=== PATIENT | female | born 1940 | race Caucasian/White ===

== ENCOUNTER 2022-05-31 12:40 | Inpatient (IN) | payer MEDICARE, MEDICAID ==
[~2022-05-31] VITALS: Ht 165.1 cm; Wt 88.5 kg
--- NOTE | 2022-05-31 12:45 | NUR ---
RECEVED PT 82 YRS FEMALE CAME FROM HOME FOR UNABLE TO AMBLATE AND GENRALIZED WEEKNESS AWAKE PEROD OF COFUSTION
--- NOTE | 2022-05-31 12:48 | NUR ---
MOVE SHEET SUBMITTED.
[2022-05-31] MEDS ORDERED: ACETAMINOPHEN 325 MG TABLET PO ONE (13:00)
--- NOTE | 2022-05-31 13:00 | NUR ---
UNABLE TO STARE IV LINE AND PT REFUSED TO INSERTED
[2022-05-31] MEDS ORDERED: ALPR0.5T8 PO (13:47)
[2022-05-31] MEDS ORDERED: ZOLP5TAB8 PO (13:47)
[2022-05-31] MEDS ORDERED: MEMA7CAP2 PO (13:47)
[2022-05-31] MEDS ORDERED: DICL75TA5 PO (13:47)
[2022-05-31] MEDS ORDERED: AMLO2.5T4 PO (13:47)
--- NOTE | 2022-05-31 14:00 | NUR ---
X RAY DONE AT BED SIDE
--- NOTE | 2022-05-31 14:05 | NUR ---
LIDA CONTRERAS SENT TO LAB
[2022-05-31 14:18] LABS: BASOPHILS % (AUTO) 0.4 % (0.0-2.0); EOSINOPHILS % (AUTO) 0.9 % (0.0-6.0); HEMATOCRIT 37 % (33-45); HEMOGLOBIN 11.5 g/dL (11.5-14.8); LYMPHOCYTES # (AUTO) 1.3 K/uL (0.8-4.8); LYMPHOCYTES % (AUTO) 31.4 % (20.0-44.0); MEAN CORPUSCULAR HGB CONC 31 g/dl (31.0-36.0); MEAN CORPUSCULAR VOLUME 88 fL (82-100); MONOCYTES # (AUTO) 0.4 K/uL (0.1-1.30); MONOCYTES % (AUTO) 10.3 % (2.0-12.0); NEUTROPHILS # (AUTO) 2.3 K/uL (1.8-8.9); PLATELET COUNT (AUTO) 177 K/uL (150-450); RED BLOOD CELL COUNT(AUTO) 4.25 MIL/uL (4.0-5.2)
--- NOTE | 2022-05-31 14:35 | NUR ---
INSERTAS MED LINE ON RT UPPER ARM PATENT WILL
[2022-05-31 14:36] LABS: CALCIUM, SERUM 9.3 mg/dL (8.5-10.1); CARBON DIOXIDE 27 mmol/L (21-32); CHLORIDE 104 mmol/L (98-107); GLUCOSE 84 mg/dL (74-106); POTASSIUM 3.9 mmol/L (3.5-5.1); SODIUM SERUM 136 mmol/L (136-145); UREA NITROGEN, BLOOD 16 mg/dL (7-18)
[2022-05-31 14:42] LABS: ALANINE AMINOTRANSFERASE 18 U/L (12-78); ALBUMIN 3.6 g/dL (3.4-5.0); ALKALINE PHOSPHATASE 80 U/L (46-116); ASPARTATE AMINOTRANSFERASE 19 U/L (15-37); BILIRUBIN,DIRECT 0.3 mg/dL (0.0-0.2); BILIRUBIN,TOTAL 1.7 mg/dL (0.2-1.0); TOTAL PROTEIN, SERUM 7.7 g/dL (6.4-8.2)
[2022-05-31] MEDS ORDERED: ACETAMINOPHEN 325 MG TABLET ONE (15:40)
--- NOTE | 2022-05-31 16:46 | NUR ---
BED 307-2
--- NOTE | 2022-05-31 17:38 | NUR ---
HAND OFF JOANNA RN TO ROOM 307 STABLE VS
--- NOTE | 2022-05-31 18:15 | NUR ---
RN NOTE- PT ARRIVED FROM ED FAILURE TO THRIVE AND GENERAL MALAISE. VS- BP-142/73, HR-58, RR- 18. T- 98.1, O2 SATS AT 98% RA. PT IS AOX2, CONFUSED, , COVID NEG, NKA, PMHX- HTN, DM, DEMENTIA. SHE HAS AN 18G ML IN HER KATHERINE. PT CXR NEG, PELVIC XR NEG, LABS ARE FAIRLY UNREMARKABLE. PT IC OF UA. WILL CHANGE, CLEAN, REPOSITION AND DIAPER. PROB NEEDS PUREWICK SHE'S UNABLE TO MOVE AND HAS FREQUENT IC ISSUES. SAND SYSTEM OPERATOR MARSHA AT BEDSIDE, ORDERS BEING PROVIDED. SIDE RAILS X 4, CALL LIGHT IN REACH, BED LOCKED.
--- NOTE | 2022-05-31 18:58 | NUR ---
RN NOTE- [place] APPLIED TO PT AT THIS TIME
[2022-05-31] MEDS ORDERED: Z GUARD REMEDY 4 OZ OINT TP PRN (19:00)
[2022-05-31] MEDS ORDERED: MAGNESIUM HYDROXIDE 30 ML UDC PO PRN (19:00)
[2022-05-31] MEDS ORDERED: ALPRAZOLAM 0.5 MG TABLET PO PRN (19:00)
[2022-05-31] MEDS ORDERED: DEXTROSE 50%-WATER 50 ML DISP.SYRIN IV PRN (19:00)
[2022-05-31] MEDS ORDERED: ONDANSETRON HCL/PF 4 MG/2 ML VIAL IVP PRN (19:00)
[2022-05-31] MEDS ORDERED: MAG HYDROX/AL HYDROX/SIMETH 30 ML UDC PO PRN (19:00)
--- NOTE | 2022-05-31 19:42 | NUR ---
RN OPENING NOTES RECEIVED PT IN BED, AWAKE, WATCHING TV, WITH CAREGIVER AT BEDSIDE. AOx2, ABLE TO MAKE NEEDS KNOWN. ON RA AND TOLERATING WELL. NO SOB NOTED. NO S/SX OF RESPIRATORY DISTRESS NOTED. TELE MONITOR DETECTS SINUS BRADYCARDIA. IV ACCESS IN KATHERINE MIDLINE #18G. IV IS INTACT, PATENT, AND FLUSHING WELL. SAFETY PRECAUTIONS IN PLACE: BED IN LOWEST, LOCKED POSITION, SIDERAILS UPx2, AND BRAKES ON. TABLE4 AND CALL LIGHT WITHIN REACH. ALL NEEDS MET AT THIS TIME. Addendum: 06/01/22 at 0737 by EVERARDO BANERJEE RN PT NOT ON TELE MONITOR.
[2022-05-31 20:00] VITALS: BP 165/90
--- NOTE | 2022-05-31 20:55 | NUR ---
RN NOTES FAMILY MEMBER MADE STAFF AWARE THAT MOTHER HAD TO USE THE RESTROOM. BROUGHT BEDPAN AND SUPPLIES TO GET PATIENT TO HAVE BOWEL MOVEMENT. PATIENT BECAME AGITATED AND REFUSED TO USE BEDPAN SAID SHE WANTED TO GET UP AND WALK TO THE BATHROOM. EDUCATED PATIENT THAT SHE SHOULD NOT USE THE THE RESTROOM BECAUSE SHE CAME IN FOR WEAKNESS AND WE DON'T WANT HER TO FALL. ALSO EXPLAINED TO PATIENT THAT SHE HAS NOT BEEN EVALUATED BY PT AND WE DON'T WANT HER TO FALL. WHILE PATIENT SAT AT THE EDGE OF THE BED, FEET BEGAN SLIDING. DAUGHTER AWARE AND HEARD ALL OF THIS. HAD NO RESPONSE. PATIENT THEN BECAME AGGRESSIVE AND THREATENED TO "PUNCH YOU (NURSE AND ASSEMBLER GOLD FRAME) IN THE FACE." SAID NOT TO TOUCH HER. TRIED TO HELP PATIENT GET BACK IN BED BUT SHE REFUSED. WHILE SITTING AT EDGE OF BED, ATTEMPTED TO GET HER BACK INTO BED AGAIN BUT SHE REFUSED AND THREATENED TO HURT STAFF AGAIN. ILYA ASSEMBLER GOLD FRAME, WITNESSED. CHARGE NURSE, SHARONDA, MADE AWARE AND ALSO WITNESSED PATIENT VERBALLY THREATENING STAFF. PATIENT ALSO TOLD CHARGE NURSE "UP YOUR ASS".
[2022-05-31] MEDS: BLOOD SUGAR DIAGNOSTIC 1 EACH STRIP IN SCH (22:57)
--- NOTE | 2022-05-31 23:13 | NUR ---
RN NOTES Paste Worker came to draw blood but pt refused and became agitated. Asked "Why we (AIR ROUTE TRAFFIC CONTROLLER and Nurse) were following her around to different floors?" Made patient aware that I am her nurse and educated patient that she needs the blood type draw again in case she needs blood. Patient refused. Asked special warfare boat operator to reschedule blood draw with morning labs so the patient can be poked once.
[2022-06-01] MEDS: ZOLPIDEM TARTRATE 5 MG TABLET PO PRN ×2 (01:40→21:49)
[2022-06-01] MEDS: ACETAMINOPHEN 325 MG TABLET PO PRN ×2 (01:40→21:48)
--- NOTE | 2022-06-01 01:40 | NUR ---
RN NOTES Administered ambien per pt request for sleep.
[2022-06-01] MEDS: BLOOD SUGAR DIAGNOSTIC 1 EACH STRIP IN SCH ×4 (06:51→21:57)
[2022-06-01] MEDS: INSULIN REGULAR, HUMAN 100 UNIT/ML 3 ML VIAL SQ PRN (06:52)
[2022-06-01 07:00] LABS: BASOPHILS # (AUTO) 0.1 K/uL (0.0-0.2); BASOPHILS % (AUTO) 1.1 % (0.0-2.0); HEMATOCRIT 33 % (33-45); HEMOGLOBIN 10.2 g/dL (11.5-14.8); LYMPHOCYTES # (AUTO) 1.7 K/uL (0.8-4.8); LYMPHOCYTES % (AUTO) 34.3 % (20.0-44.0); MEAN CORPUSCULAR HGB CONC 31 g/dl (31.0-36.0); MEAN CORPUSCULAR VOLUME 86 fL (82-100); MONOCYTES # (AUTO) 0.6 K/uL (0.1-1.30); MONOCYTES % (AUTO) 11.3 % (2.0-12.0); NEUTROPHILS # (AUTO) 2.6 K/uL (1.8-8.9); NEUTROPHILS % (AUTO) 51.3 % (43.0-81.0); PLATELET COUNT (AUTO) 162 K/uL (150-450); WHITE BLOOD COUNT (AUTO) 5.1 K/uL (4.3-11.0)
--- NOTE | 2022-06-01 07:00 | NUR ---
MS RN OPENING NOTES: RECEIVED PT IN BED, AWAKE. A/O X3 FORGETFULL AND CONFUSED. NO SOB OR CARDIAC DISTRESS ON ROOM AIR AND TOLERATING WELL. IV ACCESS ON KATHERINE MIDLINE G 18,PATENT INTACT SL. ATTACHED TO PUREWICK. SAFETY MEASURES MAINTAINED: BED LOCKED AN IN LOWEST POSITION, SIDE RAILS UP X 2. CALL LIGHT IN EASY REACH FOR HELP.
[2022-06-01 07:25] LABS: THYROID STIMULATING HORMONE 1.213 uIU/mL (0.358-3.74)
[2022-06-01 07:27] LABS: CALCIUM, SERUM 9.2 mg/dL (8.5-10.1); CREATININE 0.9 mg/dL (0.6-1.3); MAGNESIUM 2.1 mg/dL (1.8-2.4); PHOSPHORUS 3.4 mg/dL (2.5-4.9); POTASSIUM 3.9 mmol/L (3.5-5.1)
--- NOTE | 2022-06-01 07:36 | NUR ---
RN OPENING NOTES RECEIVED PT IN BED, ASLEEP, AWAKENS TO VERBAL STIMULI. AOx2, ABLE TO MAKE NEEDS KNOWN. ON RA AND TOLERATING WELL. NO SOB NOTED. NO S/SX OF RESPIRATORY DISTRESS NOTED. IV ACCESS IN KATHERINE MIDLINE #18G. IV IS INTACT, PATENT, AND FLUSHING WELL. ALL ORDERS CARRIED OUT. ALL NEEDS MET. PT KEPT CLEAN AND DRY. SAFETY PRECAUTIONS IN PLACE: BED IN LOWEST, LOCKED POSITION, SIDERAILS UPx2, AND BRAKES ON. TABLE4 AND CALL LIGHT WITHIN REACH. WILL ENDORSE TO ONCOMING SHIFT FOR PETRONA.
[2022-06-01] MEDS ORDERED: DICLOFENAC SODIUM PO SCH (09:00)
[2022-06-01] MEDS ORDERED: PANTOPRAZOLE 40 MG VIAL IV SCH (09:00)
[2022-06-01] MEDS: MEMANTINE HCL 5 MG TABLET PO SCH (09:01)
[2022-06-01] MEDS: AMLODIPINE BESYLATE 2.5 MG TABLET PO SCH (09:18)
[2022-06-01 15:57] VITALS: BP 135/81
--- NOTE | 2022-06-01 16:48 | NUR ---
RN NOTES: PATIENT REFUSED BLOOD SUGAR CHECK, PATIENT REFUSED TO ATTACHED TO PUREWICK, UNABLE TO COLLECT UA.
--- NOTE | 2022-06-01 18:42 | NUR ---
MS RN CLOSING NOTES PT IN BED AWAKE. AOx2, ABLE TO MAKE NEEDS KNOWN. ON RA AND TOLERATING WELL. NO SOB NOTED OR CARDIAC DISTRESS NOTED. IV ACCESS IN KATHERINE MIDLINE #18G. IV IS INTACT, PATENT, AND FLUSHING WELL. ALL ORDERS CARRIED OUT. ALL NEEDS MET. PT KEPT CLEAN AND DRY. PATIENT IS UNCOOPERATIVE AND NEEDS FREQUENT REORIENTATION. SAFETY PRECAUTIONS IN PLACE: BED IN LOWEST, LOCKED POSITION, SIDE RAILS UPx2, AND BRAKES ON. TABLE4 AND CALL LIGHT WITHIN REACH. WILL ENDORSE TO FEATHER TRIMMER RN FOR CONTINUITY OF CARE.
--- NOTE | 2022-06-01 21:49 | NUR ---
RN NOTE PT REQUESTED SLEEPING PILL. ADMINISTERED AMBIEN 5 MG FOR INSOMNIA ORDERED. MADE COMFORTABLE IN BED. ALL NEEDS MET AT THIS TIME.
--- NOTE | 2022-06-02 05:42 | NUR ---
MS RN OPENING NOTE RECEIVED PT AWAKE IN BED. AOx2 AND ABLE TO MAKE NEEDS KNOWN. PT STABLE ON RA, TOLERATING WELL. NO SOB OR S/S OF RESPIRAOTRY DISTRESS. BREATHING EVEN AND UNLABORED. IV ACCESS IN KATHERINE MIDLINE #18G, SL, INTACT AND PATENT. SAFETY PRECAUTIONS IN PLACE. BED IN LOWEST LOCKED POSITION, HOB ELEVATED, SIDE RAILS UP X2, AND CALL LIGHT AND TABLE WITHIN REACH. ALL NEEDS MET AT THIS TIME. Addendum: 06/02/22 at 0545 by PIETER FERNANDEZ RN OPENING NOTE 06/01 @ 1930. LATE DOCUMENTATION D/T PRIORITY OF PATIENT CARE
[2022-06-02] MEDS: BLOOD SUGAR DIAGNOSTIC 1 EACH STRIP IN SCH ×4 (06:37→21:22)
--- NOTE | 2022-06-02 06:50 | NUR ---
MS RN CLOSING NOTE PT AWAKE IN BED. A/OX2 AND ABLE TO MAKE NEEDS KNOWN. PT STABLE ON RA, TOLERATING WELL. NO SOB OR S/S OF RESPIRATORY DISTRESS. BREATHING EVEN AND UNLABORED. IV ACCESS IN KATHERINE MIDLINE #18G, SL, INTACT AND PATENT. ALL MED GIVEN ORDERED. KEPT CLEAN AND DRY. SAFETY PRECAUTIONS IN PLACE AT ALL TIMES. BED IN LOWEST LOCKED POSITION, HOB ELEVATED, SIDE RAILS UP X2, AND CALL LIGHT AND TABLE WITHIN REACH. ALL NEEDS MET AT THIS TIME AND WILL ENDORSE TO ONCOMING NURSE FOR PETRONA.
--- NOTE | 2022-06-02 07:30 | NUR ---
RN MS NOTES PT IN BED, AWAKE, ALERT AND ORIENTED, NO COMPLAINT OF PAIN OR ANY DISCOMFORT, RESPIRATIONS NORMAL, CALL LIGHT WITHIN REACH, KEPT COMFORTABLE IN BED.
[2022-06-02 08:00] VITALS: BP 136/55
[2022-06-02] MEDS: AMLODIPINE BESYLATE 2.5 MG TABLET PO SCH ×2 (09:00→09:14)
[2022-06-02] MEDS: PANTOPRAZOLE 40 MG TABLET.DR PO SCH ×2 (09:00→09:14)
[2022-06-02] MEDS: GLUCERNA SHAKE 237 ML CAN PO SCH (09:13)
[2022-06-02] MEDS: MEMANTINE HCL 5 MG TABLET PO SCH (09:14)
[2022-06-02 12:19] LABS: BILIRUBIN,URINE NEGATIVE (NEGATIVE); COLOR,URINE YELLOW (YELLOW); LEUKOCYTE ESTERASE ,URINE TRACE (NEGATIVE); NITRITE, URINE NEGATIVE (NEGATIVE); PROTEIN,URINE NEGATIVE (NEGATIVE); UGLUCOSE NEGATIVE (NEGATIVE); UROBILINOGEN,URINE 0.2 EU/dL (0.2)
[2022-06-02 12:34] LABS: BACTERIA,URINE Many /HPF (None Seen); RBC,URINE 0-2 /HPF (0-2); SQUAMOUS EPITHELIAL CELL,UR Few /HPF (None Seen)
--- NOTE | 2022-06-02 17:18 | NUR ---
RN MS NOTES DR. LARSON INFORMED OF URINALYSIS RESULT, RECEIVED ORDER TO START PT ON ROCEPHIN 1G IV DAILY, NOTED AND CARRIED OUT.
[2022-06-02] MEDS: CEFTRIAXONE 1 G in IV D5W 50 ML IV SCH (17:40)
--- NOTE | 2022-06-02 19:00 | NUR ---
RN MS NOTES PT IN BED, AWAKE, ALERT WITH PERIODS OF BEING FORGETFUL, HAS BEEN REFUSING BLOOD DRAW AND BLOOD SUGAR CHECKS, MD INFORMED, STARTED ON IV ATB ORDERED, ASSISTED WITH TOILETING NEEDS, ABLE TO AMBULATE WITH A WALKER WITH MINIMAL ASSISTANCE, ALL NEEDS ATTENDED.
--- NOTE | 2022-06-02 19:30 | NUR ---
MS RN OPENING NOTE RECEIVED PT AWAKE IN BED. A/O X2 AND ABLE TO MAKE NEEDS KNOWN. PT STABLE ON RA, TOLERATING WELL. NO SOB OR S/S OF RESPIRATORY DISTRESS. BREATHING EVEN AND UNLABORED. IV ACCESS IN KATHERINE MIDLINE #18G, SL, INTACT AND PATENT. SAFETY PRECAUTIONS IN PLACE. BED IN LOWEST LOCKED POSITION, HOB ELEVATED, SIDE RAILS UP X2, AND CALL LIGHT AND TABLE WITHIN REACH. ALL NEEDS MET AT THIS TIME.
[2022-06-02] MEDS: ZOLPIDEM TARTRATE 5 MG TABLET PO PRN (20:18)
[2022-06-02] MEDS: ACETAMINOPHEN 325 MG TABLET PO PRN (20:18)
--- NOTE | 2022-06-02 20:19 | NUR ---
RN NOTE PT REQUESTED SLEEPING PILL. STATED SHE "HAS NOT SLEPT ALL DAY" AND "JUST WANTS TO GO TO SLEEP RIGHT NOW". ADMINISTERED AMBIEN 5 MG FOR SLEEP ORDERED. MADE COMFORTABLE IN BED. WARM BLANKETS PROVIDED. ALL NEEDS MET AT THIS TIME.
--- NOTE | 2022-06-02 21:22 | NUR ---
RN NOTE PT STATED SHE DOES NOT WANT HER BS TAKEN. EXPLAINED RISKS TO NON COMPLIANCE, PT VERBALIZED UNDERSTANDING AND STILL REFUSED.
[2022-06-03] MEDS: BLOOD SUGAR DIAGNOSTIC 1 EACH STRIP IN SCH ×4 (06:46→21:57)
--- NOTE | 2022-06-03 06:47 | NUR ---
MS RN CLOSING NOTE PT AWAKE IN BED. A/OX2 AND ABLE TO MAKE NEEDS KNOWN. PT STABLE ON RA, TOLERATING WELL. NO SOB OR S/S OF RESPIRATORY DISTRESS. BREATHING EVEN AND UNLABORED. IV ACCESS IN KATHERINE MIDLINE #18G, SL, INTACT AND PATENT. PT REFUSED ALL ACCU CHECKS. EXPLAINED RISKS AND PT STILL REFUSED. KEPT CLEAN AND DRY. SAFETY PRECAUTIONS IN PLACE AT ALL TIMES. BED IN LOWEST LOCKED POSITION, HOB ELEVATED, SIDE RAILS UP X2, AND CALL LIGHT AND TABLE WITHIN REACH. ALL NEEDS MET AT THIS TIME AND WILL ENDORSE TO ONCOMING NURSE FOR PETRONA.
--- NOTE | 2022-06-03 07:25 | NUR ---
RN OPENING NOTE RECEIVED PATIENT ASLEEP IN BED, NO SIGNS OF ACUTE DISTRESS NOTED. A/O X2, VERBALLY RESPONSIVE. ON ROOM AIR, TOLERATING WELL. NO SOB NOTED, BREATHING EVEN AND UNLABORED. DENIES ANY PAIN AT THIS TIME. NOTED WITH IV ACCESS IN RIGHT UPPER ARM MIDLINE #18G, INTACT AND PATENT, SALINE LOCKED. SAFETY MEASURE IN PLACE.ED IN LOWEST AND LOCKED POSITION, SIDE RAILS UP X2, CALL LIGHT PLACED WITHIN EASY REACH. WILL CONTINUE TO MONITOR PATIENT.
[2022-06-03 07:47] LABS: BASOPHILS % (AUTO) 0.4 % (0.0-2.0); EOSINOPHILS % (AUTO) 1.5 % (0.0-6.0); HEMATOCRIT 33 % (33-45); HEMOGLOBIN 10.5 g/dL (11.5-14.8); LYMPHOCYTES # (AUTO) 1.4 K/uL (0.8-4.8); LYMPHOCYTES % (AUTO) 31.4 % (20.0-44.0); MEAN CORPUSCULAR HGB CONC 32 g/dl (31.0-36.0); MEAN CORPUSCULAR VOLUME 86 fL (82-100); MONOCYTES # (AUTO) 0.4 K/uL (0.1-1.30); MONOCYTES % (AUTO) 8.7 % (2.0-12.0); NEUTROPHILS # (AUTO) 2.6 K/uL (1.8-8.9); PLATELET COUNT (AUTO) 184 K/uL (150-450); RED BLOOD CELL COUNT(AUTO) 3.86 MIL/uL (4.0-5.2); WHITE BLOOD COUNT (AUTO) 4.5 K/uL (4.3-11.0)
[2022-06-03 08:19] LABS: CREATININE 0.9 mg/dL (0.6-1.3); MAGNESIUM 2.1 mg/dL (1.8-2.4); PHOSPHORUS 3.2 mg/dL (2.5-4.9); POTASSIUM 3.9 mmol/L (3.5-5.1)
[2022-06-03] MEDS: PANTOPRAZOLE 40 MG TABLET.DR PO SCH (09:15)
[2022-06-03] MEDS: AMLODIPINE BESYLATE 2.5 MG TABLET PO SCH (09:15)
[2022-06-03] MEDS: MEMANTINE HCL 5 MG TABLET PO SCH (09:15)
[2022-06-03] MEDS: GLUCERNA SHAKE 237 ML CAN PO SCH (09:23)
[2022-06-03] MEDS: ACETAMINOPHEN 325 MG TABLET PO PRN ×2 (09:30→22:11)
[2022-06-03] MEDS: INSULIN REGULAR, HUMAN 100 UNIT/ML 3 ML VIAL SQ PRN (12:15)
--- NOTE | 2022-06-03 17:30 | NUR ---
RN NOTE BLOOD SUGAR CHECK REFUSED BY PATIENT IN SPITE OF EXPLANATION OF IMPORTANCE, PT STRONGLY REFUSED.
[2022-06-03] MEDS: CEFTRIAXONE 1 G in IV D5W 50 ML IV SCH (18:14)
--- NOTE | 2022-06-03 18:43 | NUR ---
RN CLOSING NOTE PATIENT IN BED AWAKE, NO SIGNS OF ACUTE DISTRESS NOTED. VERBALLY RESPONSIVE. WATCHING TV. REMAINS STABLE IN ROOM AIR, BREATHING EVEN AND UNLABORED. IV ACCESS IN RIGHT UPPER ARM MIDLINE #18G, INTACT AND PATENT, SALINE LOCKED. DUE MEDS GIVEN, TAKEN WELL. ASSISTED TO BATHROOM, PATIENT ABLE TO AMBULATE WITH FWW WITH SBA. SAFETY MEASURE IN PLACE. BED IN LOWEST AND LOCKED POSITION, SIDE RAILS UP X3, CALL LIGHT PLACED WITHIN EASY REACH. WILL ENDORSE TO NEXT SHIFT FOR CONTINUITY OF CARE.
[2022-06-03 21:04] VITALS: BP 129/67
[2022-06-03] MEDS: ZOLPIDEM TARTRATE 5 MG TABLET PO PRN (22:11)
--- NOTE | 2022-06-03 22:11 | NUR ---
RN NOTE PT REQUESTED SLEEPING PILL AND TYLENOL. ADMINISTERED MEDICATION ORDERED. MADE COMFORTABLE IN BED. ALL NEEDS MET AT THIS TIME.
[2022-06-04] MEDS: ACETAMINOPHEN 325 MG TABLET PO PRN (06:32)
--- NOTE | 2022-06-04 06:32 | NUR ---
MS RN CLOSING NOTE PT AWAKE IN BED. A/O X2 AND ABLE TO MAKE NEEDS KNOWN. PT STABLE ON RA, TOLERATING WELL. NO SOB OR S/S OF RESPIRATORY DISTRESS. BREATHING EVEN AND UNLABORED. IV ACCESS IN KATHERINE MIDLINE #18G, SL, INTACT AND PATENT. REQUESTED TYLENOL FOR KNEE DISCOMFORT, ADMINISTERED ORDERED. KEPT CLEAN AND DRY. SAFETY PRECAUTIONS IN PLACE AT ALL TIMES. BED IN LOWEST LOCKED POSITION, HOB ELEVATED, SIDE RAILS UP X2, AND CALL LIGHT AND TABLE WITHIN REACH. ALL NEEDS MET AT THIS TIME AND WILL ENDORSE TO ONCOMING NURSE FOR PETRONA.
[2022-06-04] MEDS: BLOOD SUGAR DIAGNOSTIC 1 EACH STRIP IN SCH ×2 (06:36→11:32)
--- NOTE | 2022-06-04 07:23 | NUR ---
RN OPENING NOTE RECEIVED PATIENT ASLEEP IN BED, EASILY AROUSED. NO SIGNS OF ACUTE DISTRESS NOTED. VERBALLY RESPONSIVE. ON ROOM AIR, TOLERATING WELL. NO SOB NOTED, BREATHING EVEN AND UNLABORED. DENIES ANY PAIN AT THIS TIME. NOTED WITH IV ACCESS IN RIGHT UPPER ARM MIDLINE #18G, INTACT AND PATENT, SALINE LOCKED. SAFETY MEASURE IN PLACE. BED IN LOWEST AND LOCKED POSITION, SIDE RAILS UP X2, CALL LIGHT PLACED WITHIN EASY REACH. WILL CONTINUE TO MONITOR PATIENT.
[2022-06-04 08:00] VITALS: BP 132/73
[2022-06-04 08:29] VITALS: BP 132/73
[2022-06-04] MEDS: AMLODIPINE BESYLATE 2.5 MG TABLET PO SCH (08:29)
[2022-06-04] MEDS: MEMANTINE HCL 5 MG TABLET PO SCH (08:29)
[2022-06-04] MEDS: PANTOPRAZOLE 40 MG TABLET.DR PO SCH (08:29)
[2022-06-04] MEDS: GLUCERNA SHAKE 237 ML CAN PO SCH (08:30)
[2022-06-04] MEDS ORDERED: CEPH500C2 PO (13:05)
--- NOTE | 2022-06-04 15:52 | NUR ---
LUDLOW MACHINE OPERATOR NOTE PATIENT DISCHARGED TO [facility] IN STABLE CONDITION. PATIENT REMAINS AWAKE AND ALERT, A/O X3. NO SIGNS OF ACUTE DISTRESS NOTED. VITAL SIGNS TAKEN, STABLE AND RECORDED. ALL BELONGINGS ACCOUNTED FOR, FORM SIGNED BY PATIENT. IV ACCESS ON KATHERINE REMOVED, NO BLEEDING NOTED, PRESSURE DRESSING APPLIED TO SITE. SKIN ASSESSMENT DONE, SKIN GENERALLY INTACT, NO SORE OR WOUND NOTED. HEALTH TEACHINGS AND DISCHARGE INSTRUCTIONS PROVIDED TO PATIENT WITH VERBALIZATION OF UNDERSTANDING. REPORT GIVEN TO SNF RN RAJEEV GAONA. AMBULANCE CAME @3898, HANDOFF REPORT GIVEN TO AMBULANCE CREW. PATIENT LEFT UNIT VIA [facility] @4599. AWARE OF DISCHARGE.
== END 2022-06-04 15:30 | DRG 690 ==
LOC: ER 12:56 → MED 17:18
PROVIDERS: ADMIT Nurse Practitioner Acute Care; ATTEND Nurse Practitioner Acute Care
PROC: 05HB33Z Insertion of Infusion Device into Right Basilic Vein, Percutaneous Approach (ICD-10-PCS; principal; 2022-05-31)
DX: N39.0 Urinary tract infection, site not specified (principal); R62.7 Adult failure to thrive; Z68.30 Body mass index [BMI] 30.0-30.9, adult; E11.9 Type 2 diabetes mellitus without complications; E66.9 Obesity, unspecified; Z20.822 Contact with and (suspected) exposure to COVID-19; F03.90 Unspecified dementia, unspecified severity, without behavioral disturbance, psychotic disturbance, mood disturbance, and anxiety; I10 Essential (primary) hypertension; Z79.899 Other long term (current) drug therapy; R32 Unspecified urinary incontinence
CPT/HCPCS: 36415; 71045-TC; 72170-TC; 80048-TC; 80061-TC; 80076-TC; 81001; 82962-TC; 83735-TC; 84100-TC; 84443-TC; 84484-TC; 85025-TC; 85730-TC; 86850-TC; 87081-TC; 87086-TC; 97110-TC; 97116-TC; 97530-TC; C9113; C9803; G0378; J0696; J1815; J7030; J7050; J7060